=== PATIENT | female | born 1995 | race Caucasian/White ===

== ENCOUNTER 2022-06-05 11:53 | Observation (INO) | payer MEDICAID, OTHER ==
[~2022-06-05] VITALS: Ht 165.1 cm; Wt 108.9 kg
[2022-06-05] MEDS ORDERED: PREN-55 PO (12:14)
[2022-06-05 13:32] LABS: CLARITY URINE CLOUDY (CLEAR); COLOR URINE YELLOW (YELLOW); KETONES URINE NEGATIVE (NEGATIVE); LEUKOCYTE ESTERASE URINE 1+ (NEGATIVE); NITRITE URINE NEGATIVE (NEGATIVE); OCCULT BLOOD URINE NEGATIVE (NEGATIVE); PH URINE 7.5 (4.5-8.0); PROTEIN URINE NEGATIVE (NEGATIVE); SPECIFIC GRAVITY URINE 1.013 (1.005-1.030); UROBILINOGEN URINE 0.2 E.U./dL (0.2-1.0)
[2022-06-05] MEDS ORDERED: LACTATED RINGERS 1,000 ML IV SCH (14:15)
[2022-06-05] MEDS ORDERED: CEFAZOLIN 2,000 MG in DEXT 5% WATER 100 ML IV NR (15:30)
== END 2022-06-05 15:35 | disposition home or self-care (01) ==
LOC: 8 EST LDRP 11:53
PROVIDERS: ADMIT Obstetrics & Gynecology; ATTEND Obstetrics & Gynecology
DX: O26.853 Spotting complicating pregnancy, third trimester (principal); O62.9 Abnormality of forces of labor, unspecified; Z3A.34 34 weeks gestation of pregnancy
CPT/HCPCS: 59025; 76805; 76818; 81003; 96365; G0378; J0690; J7060; 99281; J7120; G0379

== ENCOUNTER 2022-07-09 07:52 | Inpatient (IN) | payer OTHER ==
[~2022-07-09] VITALS: Ht 165.1 cm; Wt 113.4 kg
[~2022-07-09 07:52] MED LIST: PREN-55 PO
[2022-07-09] MEDS ORDERED: LIDOCAINE HCL 1% 20ML VIAL (Pyxis) INJ INFIL SCH (09:15)
[2022-07-09] MEDS ORDERED: METHYLERGONOVINE MALEATE 0.2 MG/ML IM PRN (09:15)
[2022-07-09 10:05] LABS: BASOPHILS % 0.3 % (0.0-2.0); EOSINOPHILS % 1.4 % (0.0-5.0); HEMATOCRIT. 36.3 % (36.0-48.0); HEMOGLOBIN. 12.2 g/dL (12.0-16.0); LYMPHOCYTES % 28.2 % (20.0-50.0); MEAN CORPUSCULAR HEMOGLOBIN 28.8 pg (28.0-32.0); MEAN CORPUSCULAR VOLUME 85.7 fL (81.0-99.0); MEAN PLATELET VOLUME 8.3 fl (7.4-10.4); MONOCYTES % 8.4 % (2.0-8.0); NEUTROPHILS % 61.7 % (40.0-76.0); PLATELET 262 x1000/uL (130-400); RED BLOOD CELL COUNT 4.23 mill/uL (4.2-5.4); RED CELL DISTRIBUTION WIDTH 13.8 % (11.6-14.6)
[2022-07-09 10:09] LABS: CLARITY URINE CLEAR (CLEAR); COLOR URINE YELLOW (YELLOW); KETONES URINE NEGATIVE (NEGATIVE); LEUKOCYTE ESTERASE URINE NEGATIVE (NEGATIVE); NITRITE URINE NEGATIVE (NEGATIVE); OCCULT BLOOD URINE NEGATIVE (NEGATIVE); PROTEIN URINE NEGATIVE (NEGATIVE); SPECIFIC GRAVITY URINE 1.009 (1.005-1.030); UROBILINOGEN URINE 0.2 E.U./dL (0.2-1.0)
[2022-07-09 10:15] LABS: INR 0.9; PARTIAL THROMBOPLASTIN TIME 28.3 sec (23.4-31.0); PROTHROMBIN TIME 9.9 sec (9.6-11.0)
[2022-07-09] MEDS: LACTATED RINGERS 1,000 ML IV SCH ×4 (10:26→22:52)
[2022-07-09 10:45] LABS: *AMPHETAMINES SCREEN URINE NEGATIVE (NEGATIVE); *BARBITURATES SCREEN URINE NEGATIVE (NEGATIVE); *BENZODIAZEPINES SCREEN URINE NEGATIVE (NEGATIVE); *COCAINE SCREEN URINE NEGATIVE (NEGATIVE); CANNABINOID URINE SCREEN NEGATIVE (NEGATIVE); METHADONE URINE SCREEN NEGATIVE (NEGATIVE); OPIATES URINE SCREEN NEGATIVE (NEGATIVE); PHENCYCLIDINE URINE SCREEN NEGATIVE (NEGATIVE)
[2022-07-09 11:08] LABS: HEPATITIS B SURFACE ANTIGEN NEGATIVE
[2022-07-09] MEDS: OXYTOCIN 30 UNITS/500ML NS PMX 500 ML IV SCH (11:54)
[2022-07-09] MEDS ORDERED: PENICILLIN G POTASSIUM 5 MMU in DEXT 5% WATER 100 ML IV SCH (13:00)
[2022-07-09] MEDS ORDERED: BUTORPHANOL TARTRATE 2 MG/ML VIAL IV PRN (17:00)
[2022-07-09] MEDS: PENICILLIN G POTASSIUM 2.5 MMU in DEXTROSE 5% WATER 50 ML IV SCH (19:06)
[2022-07-09] MEDS ORDERED: ROPIVACAINE HCL/PF EPIDURAL 200 ML EPI NR (20:45)
[2022-07-09] MEDS ORDERED: ROPIVACAINE HCL/PF EPIDURAL 200 ML EPI ONE (22:31)
[2022-07-09] MEDS ORDERED: ONDANSETRON HCL 4MG/2ML INJ ONE (22:43)
[2022-07-09] MEDS ORDERED: ONDANSETRON HCL 4MG/2ML INJ IV PRN (23:00)
[2022-07-10] MEDS: PENICILLIN G POTASSIUM 2.5 MMU in DEXTROSE 5% WATER 50 ML IV SCH ×7 (00:56→23:40)
[2022-07-10] MEDS ORDERED: ROPIVACAINE HCL/PF EPIDURAL 200 ML EPI ONE (11:01)
[2022-07-10] MEDS ORDERED: ROPIVACAINE HCL/PF EPIDURAL 200 ML EPI SCH (11:15)
[2022-07-10] MEDS: LACTATED RINGERS 1,000 ML IV SCH ×3 (18:31→23:41)
[2022-07-10] MEDS: OXYTOCIN 30 UNITS/500ML NS PMX 500 ML IV SCH ×2 (21:24→21:26)
[2022-07-10] MEDS ORDERED: CITRIC ACID/SODIUM CITRATE SOLN 30ML UDC PO ONE (23:30)
[2022-07-11] MEDS ORDERED: ONDANSETRON HCL 4MG/2ML INJ ONE (00:41)
[2022-07-11] MEDS ORDERED: DEXAMETHASONE 4MG/ML 1ML VIAL ONE (00:41)
[2022-07-11] MEDS ORDERED: MORPHINE SULFATE/PF 1MG/ML 10ML AMP ONE (00:41)
[2022-07-11] MEDS ORDERED: OXYTOCIN 10 UNITS/ML 1ML ONE (00:41)
[2022-07-11] MEDS ORDERED: CEFAZOLIN SODIUM 1000MG/VIAL ONE (00:41)
[2022-07-11] MEDS ORDERED: METOCLOPRAMIDE HCL 10MG/2ML VIAL IV ONE (02:15)
[2022-07-11] MEDS ORDERED: ROPIVACAINE HCL/PF EPIDURAL 0 ML EPI ONE (02:32)
[2022-07-11] MEDS ORDERED: LIDOCAINE HCL 2%/EPINEPHRINE 1:100,000 20 ML VIAL INFIL ONE (02:35)
[2022-07-11] MEDS ORDERED: TRANEXAMIC ACID 10 ML ONE (03:16)
[2022-07-11] MEDS: OXYTOCIN 30 UNITS/500ML NS PMX 500 ML IV SCH (04:19)
[2022-07-11] MEDS ORDERED: HEMORRHOIDAL SUPP PR PRN (04:30)
[2022-07-11] MEDS ORDERED: BISACODYL 10MG SUPP PR PRN (04:30)
[2022-07-11] MEDS ORDERED: IBUPROFEN 400MG TABLET PO PRN (04:30)
[2022-07-11] MEDS ORDERED: LANOLIN OINT 7GM TUBE TOP PRN (04:30)
[2022-07-11] MEDS ORDERED: DIPHENHYDRAMINE 25MG CAPSULE PO PRN (04:30)
[2022-07-11] MEDS ORDERED: ONDANSETRON HCL 4MG/2ML INJ IV PRN (04:30)
[2022-07-11] MEDS ORDERED: OXYTOCIN 30 UNITS/500ML NS PMX 500 ML IV SCH (04:30)
[2022-07-11] MEDS ORDERED: RHO(D) IMMUNE GLOBULIN 300 MCG/SYR IM PRN (04:30)
[2022-07-11 06:30] VITALS: BP 114/51
[2022-07-11] MEDS ORDERED: NALOXONE HCL 0.4 MG/ML 1ML VIAL IV PRN (06:30)
[2022-07-11 07:40] VITALS: BP 101/44
[2022-07-11] MEDS: DEXT 5%/LACTATED RINGERS 1,000 ML IV SCH ×2 (08:30→16:59)
[2022-07-11] MEDS ORDERED: PRENATAL VIT/FE FUMARATE/FA TABLET PO SCH (09:00)
[2022-07-11] MEDS: KETOROLAC 30MG/ML VIAL IV PRN ×3 (10:23→23:14)
[2022-07-11 17:30] VITALS: BP 96/44
[2022-07-11 20:00] VITALS: BP 92/54
[2022-07-11] MEDS: DOCUSATE SODIUM 100MG CAPSULE PO SCH (21:54)
[2022-07-11] MEDS: MAGNESIUM/ALUMINUM HYDROXIDE/SIMETHICONE 30ML UDC PO SCH (21:55)
[2022-07-11] MEDS: SIMETHICONE 80MG TABLET CHEW PO SCH (21:55)
[2022-07-12 04:00] VITALS: BP 109/50
[2022-07-12] MEDS: IBUPROFEN 800MG TABLET PO PRN ×3 (04:53→18:56)
[2022-07-12 07:50] LABS: BASOPHILS % 0.2 % (0.0-2.0); EOSINOPHILS % 0.4 % (0.0-5.0); HEMATOCRIT. 32.4 % (36.0-48.0); HEMOGLOBIN. 10.9 g/dL (12.0-16.0); LYMPHOCYTES % 18.2 % (20.0-50.0); MEAN CORPUSCULAR HEMOGLOBIN 29.3 pg (28.0-32.0); MEAN CORPUSCULAR VOLUME 87.6 fL (81.0-99.0); MEAN PLATELET VOLUME 8.7 fl (7.4-10.4); MONOCYTES % 5.7 % (2.0-8.0); NEUTROPHILS % 75.5 % (40.0-76.0); PLATELET 250 x1000/uL (130-400)
[2022-07-12 08:20] VITALS: BP 96/45
[2022-07-12] MEDS: MAGNESIUM/ALUMINUM HYDROXIDE/SIMETHICONE 30ML UDC PO SCH ×4 (08:53→21:39)
[2022-07-12] MEDS: ACETAMINOPHEN WITH CODEINE 300/30MG TABLET PO PRN ×3 (08:53→21:39)
[2022-07-12] MEDS: SIMETHICONE 80MG TABLET CHEW PO SCH ×4 (08:54→21:38)
[2022-07-12] MEDS: FERROUS SULFATE 325MG TABLET PO SCH ×2 (13:04→16:50)
[2022-07-12 16:00] VITALS: BP 99/51
[2022-07-12 20:00] VITALS: BP 135/69
[2022-07-12] MEDS: DOCUSATE SODIUM 100MG CAPSULE PO SCH (21:38)
[2022-07-13] MEDS: IBUPROFEN 800MG TABLET PO PRN ×2 (02:56→09:53)
[2022-07-13 04:26] VITALS: BP 110/64
[2022-07-13] MEDS: FERROUS SULFATE 325MG TABLET PO SCH (07:30)
[2022-07-13] MEDS: MAGNESIUM/ALUMINUM HYDROXIDE/SIMETHICONE 30ML UDC PO SCH (07:30)
[2022-07-13] MEDS: SIMETHICONE 80MG TABLET CHEW PO SCH (07:53)
[2022-07-13] MEDS ORDERED: FERR-63 PO (07:58)
[2022-07-13] MEDS ORDERED: IBUP-2030 PO (07:58)
[2022-07-13 08:00] VITALS: BP 108/67
== END 2022-07-13 12:45 | disposition home or self-care (01) | DRG 539 ==
LOC: 8 EST LDRP 07:52 → OBSVTOIN 10:03 → 8EST 07-11 06:43
PROVIDERS: ADMIT Obstetrics & Gynecology; ATTEND Obstetrics & Gynecology
PROC: 10D00Z1 Extraction of Products of Conception, Low, Open Approach (ICD-10-PCS; principal; 2022-07-11)
PROC: 0UB70ZZ Excision of Bilateral Fallopian Tubes, Open Approach (ICD-10-PCS; 2022-07-11)
DX: O62.0 Primary inadequate contractions (principal); O36.60X0 Maternal care for excessive fetal growth, unspecified trimester, not applicable or unspecified; O62.2 Other uterine inertia; O99.214 Obesity complicating childbirth; Z20.822 Contact with and (suspected) exposure to COVID-19; Z3A.39 39 weeks gestation of pregnancy; Z37.0 Single live birth; Z30.2 Encounter for sterilization
CPT/HCPCS: 36415; 76805; 76818; 80305; 81003; 85025; 86592; 86703; 86762; 86850; 86900; 87340; 87426; 88307; 99281; G0378; J0690; J1100; J1885; J2274; J2405; J2540; J2765; J2795; J3490; J7060; J7120; J7121; A4315; J2590